=== PATIENT | female | born 1995 | race Caucasian/White ===

== ENCOUNTER 2020-05-24 09:14 | Emergency (ER) | payer OTHER, SELFPAY ==
[~2020-05-24] VITALS: Ht 157.5 cm; Wt 67.4 kg
[2020-05-24 09:15] VITALS: BP 136/86
[2020-05-24] MEDS ORDERED: NITR1CAP11 PO (10:49)
[2020-05-24] MEDS ORDERED: PHEN-372 PO (10:49)
== END 2020-05-24 10:54 | disposition home or self-care (01) ==
LOC: M ED 09:14
DX: N39.0 Urinary tract infection, site not specified (principal); R10.30 Lower abdominal pain, unspecified